=== PATIENT | female | born 1940 | race Caucasian/White ===

== ENCOUNTER 2016-07-25 23:50 | Observation (INO) | payer MEDICARE, OTHER ==
--- NOTE | ~2016-07-25 | HP ---
History And Physical [address] [place]. [address] NAME: JAMAR CURRAN : 38 STATUS : ADM Eloisa PAT#: [id number] AGE: 76 ADM/REG DATE : 07/25/16 MR#: [id number] REPORT SERV DATE: 07/26/16 DICTATED BY: JONATAN MALHOTRA DATE: 07/26/16 REPORT STATUS : Draft TRANSCRIBED BY: MODYoni DATE: 07/26/16 DATE OF ADMISSION: 07/25/2016 HISTORY OF PRESENT ILLNESS: The patient is a 76-year-old white female with a history of coronary artery disease, hypertension, and hyperlipidemia. The patient had a cardiac catheterization done on 07/23/2014 that showed patent stents in the proximal to mid LAD. Left ventricular ejection fraction was 60%. The patient had acute onset of weakness and tachycardia yesterday. She presented to the emergency room and was found to have atrial fibrillation with a rapid ventricular response. She was placed on Cardizem and subsequently converted. Cardiac enzymes are negative. Echocardiogram is pending. PAST MEDICAL HISTORY: Remarkable for coronary artery disease with previous stenting, essential hypertension, and hyperlipidemia. SOCIAL HISTORY: The patient does not smoke. FAMILY HISTORY: Negative for coronary artery disease. REVIEW OF SYSTEMS: The patient denies cough, wheeze, sputum production, vomiting, diarrhea, or dysuria. PHYSICAL EXAMINATION: VITAL SIGNS: Blood pressure is 140/70, heart rate is 90 and regular, and respirations 16 and unlabored. HEENT: Unremarkable. NECK: Shows no jugular venous distention with good carotid upstroke. CHEST: Clear. CARDIOVASCULAR: PMI is not displaced. S1 is normal. S2 is narrowly split. No gallop is present. ABDOMEN: Soft and nontender with normal bowel sounds. EXTREMITIES: Show no cyanosis, clubbing, or edema. SKIN: Warm and dry with no pallor or icterus. NEUROLOGIC/PSYCHIATRIC: The patient is oriented x3 with appropriate affect. IMPRESSION: 1. Paroxysmal atrial fibrillation, which was converted back to sinus rhythm on IV Cardizem. 2. Stable coronary artery disease. 3. Essential hypertension. 4. Hyperlipidemia. PLAN: 1. Echocardiogram. 2. Change from IV Cardizem to p.o. Betapace and begin Eliquis. 3. Continue other home medications except for Plavix. History And Physical [address] [place]. [id number] NAME: JAMAR CURRAN : 38 STATUS : ADM Eloisa PAT#: [id number] AGE: 76 ADM/REG DATE : 07/25/16 MR#: [id number] REPORT SERV DATE: 07/26/16 DICTATED BY: JONATAN MALHOTRA DATE: 07/26/16 REPORT STATUS : Draft TRANSCRIBED BY: LEXI DATE: 07/26/16 SS/LEXI Jonatan Malhotra M.D., F.A.C.C. / [id number] CC: Jonatan Malhotra M.D., FWillyAWillyCWillyCWilly [place] M.D.
[2016-07-25 23:50] LABS: BASOPHILS 0.4 %; BASOPHILS ABSOLUTE 0.03 10/3/uL (0.0-0.16); EOSINOPHILS 1.9 %; EOSINOPHILS ABSOLUTE 0.14 10/3/uL (0.0-0.53); HEMATOCRIT 41.8 % (36.0-48.0); HEMOGLOBIN 12.9 g/dL (12.0-16.0); IMMATURE GRANULOCYTES 0.1 %; IMMATURE GRANULOCYTES ABSOLUTE 0.01 10/3/uL (0.0-0.11); LYMPHOCYTES 38.9 %; LYMPHOCYTES ABSOLUTE 2.92 10/3/uL (0.67-4.30); MEAN CORPUS HGB CONC 30.9 g/dL (32.0-36.0); MEAN CORPUSCULAR HEMOGLOB 25.7 pg (26.0-34.0); MEAN CORPUSCULAR VOLUME 83.4 fL (80-100); MEAN PLATELET VOLUME 10.4 fL (9.2-13.0); MONOCYTES 7.6 %; MONOCYTES ABSOLUTE 0.57 10/3/uL (0.21-1.20); NEUTROPHILS 51.1 %; NEUTROPHILS ABSOLUTE 3.83 10/3/uL (2.02-8.40); PLATELET COUNT 280 10/3/uL (150-400); RED CELL COUNT 5.01 10/6/uL (4.0-5.6); WHITE BLOOD CELLS 7.5 10/3/uL (4.5-10.5)
[~2016-07-25 23:50] MED LIST: ASA5GR PO; ATRONASAL6 NAS; BACDS PO; BEN25 PO; BUM1 PO; CELEXA20 PO; CITRACAL PO; DSS PO; DYAZIDE1 CAP PO; FISH-EPA1000 MG PO; FLAXSEED OIL1000 MG PO; FLONASE NAS; FRESH KOTE OP; KLOR-CON 1010 MEQ PO; KLOR-CON M1010 MEQ PO; L40 PO; LACRISERT5 MG OPH; MAG6464 MG PO; OCUVITE PO; PLAVIX PO; PREM625 PO; PROTONIX PO; RESTASIS OPH; TOPXL25 PO; TYLENOL ARTH650 MG PO; VITAMIN E PO; VYTORIN 10/40 T1 TAB PO; X25 PO; ZANAFLEX 4 MG TA4 MG PO; ZETIA PO; ZOCOR40 PO; [UNRECOGNIZED DRUG - OTHER] OP
[2016-07-25 23:51] LABS: MANUAL DIFF NO %; RBC DISTRIBUTION WIDTH 17.8 % (12.0-16.0)
[2016-07-25] MEDS ORDERED: [UNRECOGNIZED DRUG - CODE] PO (23:51)
[2016-07-25] MEDS ORDERED: VITAMIN B-121000 MC1 PO (23:51)
[2016-07-25] MEDS ORDERED: PRESERVISION A1 EACH PO (23:52)
[2016-07-25] MEDS ORDERED: 8 HOUR650 MG PO (23:53)
[2016-07-25] MEDS ORDERED: ASAB PO (23:53)
[2016-07-25] MEDS ORDERED: PREVAGEN SUPPLEMENT PO (23:53)
[2016-07-25 23:59] LABS: PROTIME (NOT ORD) 12.8 SEC (12.0-14.5)
[2016-07-26] LABS: PARTIAL THROMBO TIME 29.7 SEC (22.5-37.2)
[2016-07-26 00:01] LABS: ASCORBIC ACID (UR NOT ORDER) NEG (NEG); BILIRUBIN, URINE NEGATIVE (NEG); ER URINALYSIS TAT 0 Hrs 00 Mins; KETONE, URINE NEGATIVE (NEG); LEUKOCYTE ESTERASE(NOT OR TRACE (NEG); NITRITE (URINE) NEG (NEG); WBC (NOT ORDERED) (RFLEX) 5 (0-5)
[2016-07-26 00:09] LABS: CHEST PAIN PROFILE TAT 0 Hrs 25 Mins; CHLORIDE, SERUM 107 MMOL/L (96-112); CO2 (CARBON DIOXIDE) 26 MMOL/L (24-34); CREATININE 0.94 MG/DL (0.55-1.02); GFR AFRICAN AMERICAN 68 ML/MIN (>=60); GFR NON AFRICAN AMERICAN 59 ML/MIN (>=60); GLUCOSE, SERUM 109 MG/DL (60-99); POTASSIUM, SERUM 4.2 MMOL/L (3.5-5.3); SODIUM, SERUM 142 MMOL/L (135-148); TROPONIN I <0.02 NG/ML (<0.05)
[2016-07-26 00:10] LABS: BUN (BLOOD UREA NITROGEN) 11 MG/DL (6-23)
[2016-07-26 06:29] LABS: ALBUMIN 3.6 G/DL (3.5-5.0); ALKALINE PHOSPHATASE 119 U/L (45-117); FREE T4 0.92 NG/DL (0.76-1.46); SGOT(AST) 13 U/L (5-40); SGPT(ALT) 19 U/L (5-65); TOTAL BILIRUBIN 0.4 MG/DL (0-1.2); TROPONIN I <0.02 NG/ML (<0.05)
[2016-07-26 06:31] LABS: DIRECT BILIRUBIN < 0.1 MG/DL (0.0-0.4); INDIRECT BILIRUBIN(NOT ORDER) 0.3 MG/DL (0.1-0.9)
[2016-07-26] MEDS ORDERED: BETAPACE80 (17:29)
[2016-07-26] MEDS ORDERED: ELIQUIS 5 MG TAB5 MG PO (17:30)
== END 2016-07-26 18:08 | disposition home or self-care (01) ==
LOC: ER 23:50 → CDU1 23:59
PROVIDERS: Emergency Medicine; Internal Medicine Interventional Cardiology
DX: I48.0 Paroxysmal atrial fibrillation (principal); I25.10 Atherosclerotic heart disease of native coronary artery without angina pectoris; I10 Essential (primary) hypertension; E78.5 Hyperlipidemia, unspecified; Z88.8 Allergy status to other drugs, medicaments and biological substances; Z79.82 Long term (current) use of aspirin; Z79.899 Other long term (current) drug therapy; Z98.41 Cataract extraction status, right eye; Z98.42 Cataract extraction status, left eye; Z98.890 Other specified postprocedural states; Z90.49 Acquired absence of other specified parts of digestive tract
CPT/HCPCS: 71010; 80048; 80076; 81001; 83735; 83880; 84439; 84443; 84484; 85025; 85610; 85730; 93005; 93306; 96365; 96375; 96376; 99285; A9270-GY; G0378